=== PATIENT | male | born 1950 | race Caucasian/White ===

== ENCOUNTER → 2016-09-05 | Outpatient (CLI) | payer MEDICARE, OTHER ==
--- NOTE | 2016-09-05 11:32 | US ---
EXAMINATION TYPE: US venous doppler duplex LE DATE OF EXAM: 09/05/2016 11:10 AM COMPARISON: NONE CLINICAL HISTORY: M79.662, R22.42, M79.661,R22.41 SWELLING/PAIN IN LT AND RT L. bilateral edema SIDE PERFORMED: Bilateral TECHNIQUE: The lower extremity deep venous system is examined utilizing real time linear array sonog jade with graded compression, doppler sonography and color-flow sonography. VESSELS IMAGED: External Iliac Vein (EIV) Common Femoral Vein Deep Femoral Vein Greater Saphenous Vein * Femoral Vein Popliteal Vein Small Saphenous Vein * Proximal Calf Veins (* superficial vessels) Right Leg: Negative for DVT Left Leg: Negative for DVT IMPRESSION: 1. No suspicious changes for deep venous thrombosis bilateral lower extremities.
== END | disposition home or self-care (01) ==
LOC: RADUSWWP 10:08
PROVIDERS: ATTEND Internal Medicine Hematology & Oncology
DX: R22.43 Localized swelling, mass and lump, lower limb, bilateral (principal)
CPT/HCPCS: 93970

== ENCOUNTER → 2016-09-07 | Outpatient (CLI) | payer MEDICARE, OTHER ==
--- NOTE | 2016-09-08 09:59 | ECHOF ---
Referral Reason:R06.00 dyspnea MEASUREMENTS -------- HEIGHT: 167.6 cm WEIGHT: 110.7 kg BP: 158/78 RVIDd: 3.3 cm (< 3.3) IVSd: 1.4 cm (0.6 - 1.1) LVIDd: 4.5 cm (3.9 - 5.3) LVPWd: 1.4 cm (0.6 - 1.1) IVSs: 1.9 cm LVIDs: 3.1 cm LVPWs: 1.9 cm LA Diam: 3.3 cm (2.7 - 3.8) LAESV Index (A-L): 16.00 ml/m Ao Diam: 3.7 cm (2.0 - 3.7) AV Cusp: 2.4 cm (1.5 - 2.6) MV EXCURSION: 15.488 mm (> 18.000) MV EF SLOPE: 124 mm/s (70 - 150) EPSS: 0.7 cm MV E Haim: 0.87 m/s MV DecT: 230 ms MV A Haim: 0.84 m/s MV E/A Ratio: 1.04 FINDINGS -------- Sinus rhythm. This was a technically adequate study. The left ventricular size is normal. There is moderate concentric left ventricular hypertrophy. Overall left ventricular systolic function is normal with, an EF between 55 - 60 %. The right ventricle is mildly enlarged. Normal LA size by volume 22+/-6 ml/m2. The right atrium was not well visualized. The aortic valve was not well visualized. Mild mitral annular calcification present. There is trace mitral regurgitation. The tricuspid valve was not well visualized. The pulmonic valve was not well visualized. The aortic root is dilated measuring 3.7cm. IVC Not well visulized. The pericardium is normal. CONCLUSIONS -------- 1. Sinus rhythm. 2. Mild mitral annular calcification present. 3. There is trace mitral regurgitation. 4. The tricuspid valve was not well visualized. 5. The pulmonic valve was not well visualized. 6. The aortic root is dilated measuring 3.7cm. 7. The pericardium is normal. 8. This was a technically adequate study. 9. The left ventricular size is normal. 10. There is moderate concentric left ventricular hypertrophy. 11. Overall left ventricular systolic function is normal with, an EF between 55 - 60 %. 12. The right ventricle is mildly enlarged. 13. Normal LA size by volume 22+/-6 ml/m2. 14. The right atrium was not well visualized. 15. The aortic valve was not well visualized. CUSTOMER ACCOUNT TECHNICIAN: Daysi Lim RDCS
== END | disposition home or self-care (01) ==
LOC: RADECHMAIN 12:41
PROVIDERS: ATTEND Family Medicine
DX: I34.0 Nonrheumatic mitral (valve) insufficiency (principal)
CPT/HCPCS: 93306

== ENCOUNTER → 2017-03-29 | Outpatient (CLI) | payer MEDICARE, OTHER ==
--- NOTE | 2017-03-29 17:14 | US ---
EXAMINATION TYPE: US carotid duplex BILAT DATE OF EXAM: 03/29/2017 COMPARISON: NONE CLINICAL HISTORY: H35.61 Retinal hemorrhage, right eye. Tortuous vessels EXAM MEASUREMENTS: RIGHT: Peak Systolic Velocity (PSV) cm/sec ----- Right CCA: 64.3 ----- Right ICA: 75.3 ----- Right ECA: 101.8 ICA/CCA ratio: 1.2 RIGHT: End Diastole cm/sec ----- Right CCA: 18.9 ----- Right ICA: 27.3 ----- Right ECA: 21.0 LEFT: Peak Systolic Velocity (PSV) cm/sec ----- Left CCA: 59.0 ----- Left ICA: 89.5 ----- Left ECA: 147.6 ICA/CCA ratio: 1.5 LEFT: End Diastole cm/sec ----- Left CCA: 13.9 ----- Left ICA: 29.9 ----- Left ECA: 25.6 VERTEBRALS (direction of flow): Right Vertebral: Antegrade Left Vertebral: Antegrade Rhythm: Normal IMPRESSION: There is antegrade flow in the vertebral arteries. Images of measurements suggest 25% st enosis in both internal carotid arteries. Criteria for Assigning % of Stenosis / Diameter reduction (Estimation based on the indirect measurements of the internal carotid artery velocities (ICA PSV). 1. Normal (no stenosis)=ICA PSV < 125 cm/s: ratio < 2.0: ICA EDV<40 cm/s. 2. Less than 50% stenosis=ICA PSV < 125 cm/s: ratio < 2.0: ICA EDV<40 cm/s. 3. 50 to 69% stenosis=ICA PSV of 125 to 230 cm/s: ration 2.0 ? 4.0: ICA EDV 40-100 cm/s. 4. Greater than 70% stenosis to near occlusion= ICA PSV > 230 cm/s: ratio > 4.0: ICA EDV > 100 cm/s. 5. Near occlusion= ICA PSV velocities may be low or undetectable: variable ratio and ICA EDV. 6. Total occlusion=unable to detect flow.
== END | disposition home or self-care (01) ==
LOC: RADUSWWP 16:06
PROVIDERS: ATTEND Family Medicine
DX: H35.61 Retinal hemorrhage, right eye (principal)
CPT/HCPCS: 93880

== ENCOUNTER → 2023-06-13 | Outpatient (CLI) | payer MEDICARE, OTHER ==
--- NOTE | 2023-06-13 09:42 | US ---
EXAMINATION TYPE: US abdomen complete DATE OF EXAM: 06/13/2023 COMPARISON: NONE CLINICAL INDICATION: Male, 72 years old with history of E83.119 HEMOCHROMATOSIS, UNSPECIFIED; Abnorma l labs. Hemochromatosis TECHNIQUE: Multiple sonographic images of the abdomen are obtained. FINDINGS: EXAM MEASUREMENTS: Liver Length: 19.7 cm Gallbladder Wall: 0.2 cm CBD: 0.4 cm Spleen: 12.9 cm Right Kidney: 11.7 x 4.8 x 5.4 cm Left Kidney: 12.3 x 5.1 x 4.6 cm Pancreas: Tail obscured by overlying bowel gas. duct = 0.3cm Liver: enlarged, attenuating , no suspicious masses or Gallbladder: stones layering in the gallbladder lumen with posterior acoustic shadowing. Evidence for sonographic Benson's sign: no CBD: appears wnl as visualized Spleen: upper limits of normal Right Kidney: no evidence of hydronephrosis Left Kidney: no evidence of hydronephrosis Upper IVC: Obscured by overlying bowel gas Abd Aorta: limited views due to overlying bowel gas The liver is homogenous without suspicious observation.. The intrahepatic portion of the IVC and pro ximal abdominal aorta are within normal limits. Multiple gallstones are present. Common bile duct is unremarkable. The visualized portions of the pancreas are homogenous. The spleen is unremarkable. Kidneys are symmetric and free of hydronephrosis. No renal lesions are seen. IMPRESSION: 1. Hepatic steatosis. No suspicious observations. 2. Cholelithiasis.
== END | disposition home or self-care (01) ==
LOC: RADUSWWP 07:42
PROVIDERS: ATTEND Internal Medicine Hematology & Oncology
DX: K76.0 Fatty (change of) liver, not elsewhere classified (principal); K80.20 Calculus of gallbladder without cholecystitis without obstruction; E83.119 Hemochromatosis, unspecified; D45 Polycythemia vera; R94.5 Abnormal results of liver function studies; E53.8 Deficiency of other specified B group vitamins
CPT/HCPCS: 76700

== ENCOUNTER → 2024-05-21 | Outpatient (CLI) | payer MEDICARE, OTHER ==
--- NOTE | 2024-05-21 10:36 | US ---
EXAMINATION TYPE: US abdomen complete DATE OF EXAM: 05/21/2024 COMPARISON: Prior abdominal ultrasound June 13, 2023 CLINICAL INDICATION: Male, 73 years old with history of E83.119 HEMACHROMATOSIS; elevated liver enzym es TECHNIQUE: Grayscale and color Doppler imaging of the abdomen was performed. FINDINGS: EXAM MEASUREMENTS: Liver Length: 21.3 cm Gallbladder Wall: 0.3 cm Spleen: 12.8 cm Right Kidney: 11.0 x 5.3 x 4.9 cm Left Kidney: 12.1 x 4.8 x 4.5 cm SVP BUSINESS DEVELOPMENT NOTES: Technical limitations due to patient's body habitus and large amount of overlyi ng bowel gas Pancreas: Tail obscured by overlying bowel gas Liver: enlarged, attenuating, difficult to penetrate Gallbladder: stones Evidence for sonographic Benson's sign: no CBD: Obscured by overlying bowel gas Spleen: wnl Right Kidney: no evidence of hydronephrosis Left Kidney: no evidence of hydronephrosis Upper IVC: Obscured by overlying bowel gas Abd Aorta: limited evaluation Persistent hepatomegaly. Persistent heterogeneous hyperechoic appearance of the liver. This limits ev aluation for focal masses. No ascites. The intrahepatic portion of the IVC is within normal limits. S uboptimal evaluation of the abdominal aorta. There is internal gallstones redemonstrated. Common kayli e duct is suboptimally evaluated. The visualized portions of the pancreas are homogenous. The splee n remains upper limits of normal in size. Kidneys are symmetric and free of hydronephrosis. No mauro l lesions are seen. IMPRESSION: Suboptimal study. Persistent hepatomegaly and underlying hepatocellular disease redemonstrated. [facility], , 05/21/2024 10:34 AM
== END | disposition home or self-care (01) ==
LOC: RADUSWWP 09:05
PROVIDERS: ATTEND Internal Medicine Hematology & Oncology
DX: K76.0 Fatty (change of) liver, not elsewhere classified (principal); R16.0 Hepatomegaly, not elsewhere classified; E83.119 Hemochromatosis, unspecified; D45 Polycythemia vera; R94.5 Abnormal results of liver function studies; Z71.3 Dietary counseling and surveillance
CPT/HCPCS: 76700

== ENCOUNTER → 2024-06-05 | Outpatient (CLI) | payer MEDICARE, OTHER ==
--- NOTE | 2024-06-05 15:30 | US ---
EXAMINATION TYPE: US carotid duplex BILAT DATE OF EXAM: 06/05/2024 COMPARISON: Prior carotid ultrasound 2018 CLINICAL INDICATION: Male, 73 years old with history of R09.89 OTH SYMPTOMS AND SIGNS; stenosis Additional History: .... TECHNIQUE: Grayscale, color Doppler and spectral Doppler evaluation of the bilateral carotid systems and vertebral arteries. Indirect Doppler criteria was utilized. FINDINGS: EXAM MEASUREMENTS: RIGHT: Peak Systolic Velocity (PSV) cm/sec ----- Right CCA: 123 ----- Right ICA: 108 ----- Right ECA: 119 ICA/CCA ratio: 0.9 RIGHT: End Diastole cm/sec ----- Right CCA: 22.7 ----- Right ICA: 32.6 ----- Right ECA: 15.4 LEFT: Peak Systolic Velocity (PSV) cm/sec ----- Left CCA: 74.3 ----- Left ICA: 90.7 ----- Left ECA: 176 ICA/CCA ratio: 1.2 LEFT: End Diastole cm/sec ----- Left CCA: 17.2 ----- Left ICA: 24.1 ----- Left ECA: 19.5 VERTEBRALS (direction of flow): Right Vertebral: Antegrade Left Vertebral: Antegrade Rhythm: Normal CLIPPER MACHINE NOTES: No significant stenosis seen Color Doppler imaging shows patency with blood flow throughout the carotid artery. Spectral waveforms are within normal limits. IMPRESSION: Right: No hemodynamically significant stenosis. Left: Less than 50% stenosis of the carotid bifurcation. Criteria for Assigning % of Stenosis / Diameter reduction (Estimation based on the indirect measurements of the internal carotid artery velocities (ICA PSV). 1. Normal (no stenosis)=ICA PSV < 125 cm/s: ratio < 2.0: ICA EDV<40 cm/s. 2. Less than 50% stenosis=ICA PSV < 125 cm/s: ratio < 2.0: ICA EDV<40 cm/s. 3. 50 to 69% stenosis=ICA PSV of 125 to 230 cm/s: ration 2.0 ? 4.0: ICA EDV 40-100 cm/s. 4. Greater than 70% stenosis to near occlusion= ICA PSV > 230 cm/s: ratio > 4.0: ICA EDV > 100 cm/s. 5. Near occlusion= ICA PSV velocities may be low or undetectable: variable ratio and ICA EDV. 6. Total occlusion=unable to detect flow. [facility], , 06/05/2024 3:27 PM
== END | disposition home or self-care (01) ==
LOC: RADUSWWP 14:46
PROVIDERS: ATTEND Family Medicine
DX: I65.22 Occlusion and stenosis of left carotid artery (principal); R09.89 Other specified symptoms and signs involving the circulatory and respiratory systems
CPT/HCPCS: 93880